=== PATIENT | female | born 1995 | race Hispanic/Latino ===

== ENCOUNTER 2018-08-01 21:14 | Emergency (ER) | payer OTHER ==
[2018-08-01 21:33] LABS: Bilirubin Negative (Negative); Blood, Urine Negative (Negative); Clarity Clear (Clear); Glucose, Urine (Dipstick) Negative (Negative); Leukocyte Small (Negative); Nitrite Negative (Negative); Protein, Urine (Dipstick) Negative (Neg-Trace); Specific Gravity, Urine 1.015 (1.005-1.030); Urobilinogen 0.2 mg/dL (0.2-1.0); pH, Urine 7.5 (5.0-9.0)
[2018-08-01 21:46] LABS: Bacteria/HPF None Seen HPF (None Seen); RBC/HPF 0-3 HPF (0-3); Squamous Epithelial 0-3 HPF (0-3)
== END 2018-08-01 22:05 | disposition home or self-care (01) ==
LOC: NAV ERS 21:14
DX: O99.89 Other specified diseases and conditions complicating pregnancy, childbirth and the puerperium (principal); R10.30 Lower abdominal pain, unspecified; R19.7 Diarrhea, unspecified; Z87.891 Personal history of nicotine dependence; Z3A.24 24 weeks gestation of pregnancy
CPT/HCPCS: 81003; 81015; 99284

== ENCOUNTER 2018-10-08 21:48 | Emergency (ER) | payer OTHER ==
[2018-10-08 23:14] LABS: #Eosinphils 0.1 thou/uL (0.0-0.7); #Lymphocytes 2.8 thou/uL (1.20-3.40); #Neutrophils 9.3 thou/uL (1.40-6.50); %Basophils 0.4 % (0.0-1.0); %Eosinophils 0.6 % (0.0-10.0); %Lymphocytes 21.1 % (21.0-51.0); %Monocytes 7.8 % (0.0-10.0); %Neutrophils 70.2 % (42.0-75.0); Hemoglobin 11.5 g/dL (12.0-16.0); Mean Corpuscular HGB CONC 33.4 g/dL (32.0-36.0); Mean Corpuscular Hemoglobin 30.6 pg (27.0-31.0); Mean Corpuscular Volume 91.5 fL (78.0-98.0); Mean Platelet Volume 9.7 fL (7.4-10.4); Platelet Count 188 thou/uL (130-400); RBC Distribution Width 11.1 % (11.5-14.5); Red Blood Cell (RBC) Count 3.77 mill/uL (4.20-5.40); White Blood Cell (WBC) Count 13.2 thou/uL (4.8-10.8)
[2018-10-08 23:19] LABS: Bilirubin Negative (Negative); Blood, Urine Negative (Negative); Clarity Clear (Clear); Glucose, Urine (Dipstick) Negative (Negative); Leukocyte Small (Negative); Nitrite Negative (Negative); Protein, Urine (Dipstick) Negative (Neg-Trace); Urobilinogen 0.2 mg/dL (0.2-1.0)
[2018-10-08 23:22] LABS: Bacteria/HPF Rare-Few HPF (None Seen); RBC/HPF None Seen HPF (0-3)
[2018-10-08 23:40] LABS: ALT (SGPT) 11 U/L (8-55); AST (SGOT) 18 U/L (5-34); Albumin 3.6 g/dL (3.5-5.0); Alkaline Phosphatase 162 U/L (40-150); Anion Gap 16 mmol/L (10-20); BUN (Urea Nitrogen) 4 mg/dL (7.0-18.7); Bilirubin, Total 0.3 mg/dL (0.2-1.2); Calc. Creatinine Clearance 0 mL/min (70-130); Calcium 9.1 mg/dL (7.8-10.44); Carbon Dioxide 22 mmol/L (22-29); Chloride 105 mmol/L (98-107); Estimated GFR-MDRD Greater than 90; Globulin 3.2 g/dL (2.4-3.5); Glucose 85 mg/dL (70-105); Potassium 3.1 mmol/L (3.5-5.1); Protein, Total 6.8 g/dL (6.0-8.3); Sodium 140 mmol/L (136-145)
== END 2018-10-09 00:25 | disposition short-term general hospital (02) ==
LOC: NAV ERS 21:48
DX: O99.89 Other specified diseases and conditions complicating pregnancy, childbirth and the puerperium (principal); R10.9 Unspecified abdominal pain; Z87.891 Personal history of nicotine dependence; Z3A.33 33 weeks gestation of pregnancy
CPT/HCPCS: 80053; 81003; 81015; 85025